=== PATIENT | female | born 1955 | race Caucasian/White ===

== ENCOUNTER → 2023-06-27 06:48 | Outpatient (REF) | payer BC, SELFPAY | LOC: MRI 3T 06:48 | PROVIDERS: ATTENDING PHYSICIAN Internal Medicine | DX: M54.14 Radiculopathy, thoracic region (principal) | CPT/HCPCS: 72141; 72146 ==

== ENCOUNTER → 2023-06-28 06:47 | Outpatient (REF) | payer BC, SELFPAY | LOC: PAVMRI 06:47 | PROVIDERS: ATTENDING PHYSICIAN Internal Medicine | DX: M54.16 Radiculopathy, lumbar region (principal) | CPT/HCPCS: 72148 ==